=== PATIENT | male | born 1995 | race Caucasian/White ===

== ENCOUNTER 2018-01-12 09:50 | Emergency (ER) | payer OTHER ==
[2018-01-12 10:19] VITALS: BP 139/85
--- NOTE | 2018-01-12 10:53 | ED ---
Respiratory - HPI Summary HPI Summary: 22 yr old male with the complaint of cough, runny nose, sore throat. He has been coughing for a about 2-3 weeks, and this morning when woke up coughed and had some blood. He is on day 7 of a 10 day script for cefdinir. - History of Current Complaint Chief Complaint: UCRespiratory Stated Complaint: COUGHING UP BLOOD Time Seen by Provider: 01/12/18 10:28 Pain Intensity: 0 - Allergy/Home Medications Allergies/Adverse Reactions: Allergies Allergy/AdvReac Type Severity Reaction Status Date / Time amoxicillin Allergy Hives Verified 01/12/18 10:17 Penicillins Allergy Hives Verified 01/12/18 10:17 Home Medications: Home Medications Cefdinir 250mg/5 ml* [Omnicef 250 mg/5 ml*] 6 ml PO BID 01/12/18 [History Confirmed 01/12/18] PMH/Surg Hx/FS Hx/Imm Hx Infectious Disease History: No Infectious Disease History: Denies: Traveled Outside the [place] in Last 30 Days - Family History Known Family History: Positive: None - Social History Occupation: Student Lives: With Family Alcohol Use: Occasionally Substance Use Type: Reports: None Smoking Status (MU): Never Smoked Tobacco Review of Systems Constitutional: Negative Positive: Cough All Other Systems Reviewed And Are Negative: Yes Physical Exam Triage Information Reviewed: Yes Vital Signs On Initial Exam: Initial Vitals Temp Pulse Resp BP Pulse Ox 98.5 F 102 16 139/85 98 01/12/18 10:14 01/12/18 10:14 01/12/18 10:14 01/12/18 10:14 01/12/18 10:14 Vital Signs Reviewed: Yes Appearance: Positive: Well-Appearing, No Pain Distress Skin: Positive: Warm, Skin Color Reflects Adequate Perfusion Head/Face: Positive: Normal Head/Face Inspection Eyes: Positive: EOMI ENT: Positive: Pharyngeal erythema, Nasal congestion, TMs normal Neck: Positive: Nontender Respiratory/Lung Sounds: Positive: Clear to Auscultation, Breath Sounds Present Cardiovascular: Positive: RRR. Negative: Murmur Abdomen Description: Negative: Distended Musculoskeletal: Positive: Strength/ROM Intact Neurological: Positive: Sensory/Motor Intact, Alert, Oriented to Person Place, Time, CN Intact II-III Psychiatric: Positive: Normal - Tiana Coma Scale Best Eye Response: 4 - Spontaneous Best Motor Response: 6 - Obeys Commands Best Verbal Response: 5 - Oriented Coma Scale Total: 15 Diagnostics - Vital Signs Vital Signs Temp Pulse Resp BP Pulse Ox 01/12/18 10:14 98.5 F 102 16 139/85 98 - Laboratory Lab Statement: Any lab studies that have been ordered have been reviewed, and results considered in the medical decision making process. Disposition - Course Course Of Treatment: 22 yr old with cough and cold symptoms, and self limited hemoptysis this morning. Chest xray neg. DC home. He will follow up with PMD. - Diagnoses Provider Diagnoses: Cough with hemoptysis, Acute bronchitis Discharge - Sign-Out/Discharge Documenting (check all that apply): Patient Departure All imaging exams completed and their final reports reviewed: Yes - Discharge Plan Condition: Good Disposition: HOME Patient Education Materials: Hemoptysis (ED), Acute Bronchitis (ED) Referrals: No Primary Care Phys,NOPCP [Primary Care Provider] - Additional Instructions: See your primary care doctor, Dr Grove in [place] in follow up. - Billing Disposition and Condition Condition: GOOD Disposition: Home
== END 2018-01-12 11:02 | disposition home or self-care (01) ==
LOC: UCCORT 09:50
DX: R04.2 Hemoptysis (principal); J20.9 Acute bronchitis, unspecified; Z88.0 Allergy status to penicillin
CPT/HCPCS: 71046; 99201; G0463

== ENCOUNTER → 2019-04-09 | Emergency (ER) | payer SELFPAY | END | disposition left against medical advice (07) | LOC: UCCORT 11:39 | DX: Z53.21 Procedure and treatment not carried out due to patient leaving prior to being seen by health care provider (principal) ==